=== PATIENT | male | born 1960 | race Caucasian/White ===

== ENCOUNTER 2016-08-09 15:05 | Emergency (ER) | payer SELFPAY ==
[2016-08-09 15:43] VITALS: BP 179/102
--- NOTE | 2016-08-09 16:31 | UC ---
Skin Complaint HPI - HPI Summary HPI Summary: Skin irritation, prickly sensation on bilat lower shins and tops of feet starting 4-5 days ago. Denies burning pain, itching, or rash. No hx of DMII. No bumps or redness. Has been using a lotion from [facility] for several weeks, and it seems to partially help when he puts it on his legs, but the irritation doesn't go away. No fevers or back pain. - History of Current Complaint Chief Complaint: UCSkin Time Seen by Provider: 08/09/16 15:45 Stated Complaint: SKIN IRRITATION Hx Obtained From: Patient Onset/Duration: Gradual Onset, Lasting Days Timing: Constant Onset Severity: Mild Current Severity: Mild Location: Discrete Aggravating: Nothing Alleviating: Other - lotion Associated Signs & Symptoms: Negative: Fever, Chills, Rash - Allergy/Home Medications Allergies/Adverse Reactions: Allergies Allergy/AdvReac Type Severity Reaction Status Date / Time No Known Allergies Allergy Verified 08/09/16 15:43 Home Medications: Home Medications NK [No Home Medications Reported] 08/09/16 [History Confirmed 08/09/16] Review of Systems Constitutional: Negative Skin: Other - discomfort Eyes: Negative ENT: Negative Respiratory: Negative Cardiovascular: Negative Gastrointestinal: Negative Genitourinary: Negative Motor: Negative Neurovascular: Negative Musculoskeletal: Negative Neurological: Negative Psychological: Negative All Other Systems Reviewed And Are Negative: Yes PMH/Surg Hx/FS Hx/Imm Hx Previously Healthy: Yes Endocrine History Of: Denies: Diabetes, Thyroid Disease Cardiovascular History Of: Denies: Cardiac Disorders, Hypertension Respiratory History Of: Denies: COPD, Asthma GI/ History Of: Denies: Ulcer - Surgical History Surgical History: Yes Surgery Procedure, Year, and Place: knee surgery - Family History Known Family History: Positive: Hypertension - Social History Alcohol Use: Rare Substance Use Type: None Smoking Status (MU): Former Smoker Physical Exam Triage Information Reviewed: Yes Appearance: Well-Appearing, No Pain Distress, Well-Nourished Vital Signs: Initial Vital Signs Temp 99.0 F 08/09/16 15:39 Pulse 96 08/09/16 15:39 Resp 18 08/09/16 15:39 BP 179/102 08/09/16 15:39 Pulse Ox 100 08/09/16 15:39 Vital Signs Reviewed: Yes Eye Exam: Normal Eyes: Positive: Conjunctiva Clear ENT Exam: Normal ENT: Positive: Normal ENT inspection, Hearing grossly normal, Pharynx normal, TMs normal Dental: Positive: Gross Decay/Caries @ - diffuse Neck exam: Normal Neck: Positive: Supple, Nontender, No Lymphadenopathy Respiratory Exam: Normal Respiratory: Positive: Chest non-tender, Lungs clear, Normal breath sounds, No respiratory distress, No accessory muscle use Cardiovascular Exam: Normal Cardiovascular: Positive: RRR, No Murmur Musculoskeletal Exam: Normal Neurological Exam: Normal, Other - tips of toes sensitive to light touch Psychological Exam: Normal Skin Exam: Normal Skin: Negative: rashes, breakdown, significant lesion(s) Course/Dx - Diagnoses Provider Diagnoses: dry skin Discharge - Discharge Plan Condition: Stable Disposition: HOME Referrals: Zuleyma Venegas MD [Medical Doctor] - Additional Instructions: As we discussed, I do not see any sign of allergy, bacterial infection, fungal infection, or mite infestation in your skin. In addition, the distribution of your symptoms do not suggest any specific nerve condition. I suggest you use a thick skin cream twice per day. You can use Eucerin, Aquaphor, or petroleum jelly. It is especially important to apply it after bathing. If you do not feel better in a few days, please see your primary care office for a recheck. Images Front/Back of Body, Lg ([place]): 1 - irritated sensation, no physical findings 2 - irritated sensation, no physical findings
== END 2016-08-09 16:35 | disposition home or self-care (01) ==
LOC: UCEAST 15:05
DX: L85.3 Xerosis cutis (principal); Z87.891 Personal history of nicotine dependence
CPT/HCPCS: 99211; G0463

== ENCOUNTER 2016-12-11 18:16 | Emergency (ER) | payer SELFPAY ==
[2016-12-11 20:48] VITALS: BP 176/84
--- NOTE | 2016-12-11 20:48 | UC ---
Skin Complaint HPI - HPI Summary HPI Summary: 56 yo male who c/o redness on right lower leg starting this morning when he woke ; he recently scratched his leg a few days ago moving some brush. no fevers or chills. No nausea, vomiting or loss of appetite. otherwise has been feeling well. Patient is noted to have high blood pressure here - on recheck it was 170/80 - he reports he has "white coat syndrome" and he takes his blood pressure at home everyday and is typically 145/70. He has never been dx with HTN in the past and does not have a PCP. DEnies ever having SOB/chest pain. Denies tobacco abuse, occasional ETOH. - History of Current Complaint Chief Complaint: UCLowerExtremity Time Seen by Provider: 12/11/16 20:43 Stated Complaint: ANKLE REDNESS Hx Obtained From: Patient Onset/Duration: Sudden Onset Skin Exposure Onset/Duration: Hours Ago Onset Severity: Mild Current Severity: Mild Pain Intensity: 1 Pain Scale Used: 0-10 Numeric Location: Discrete - RLE Character: Swelling, Redness Aggravating: Nothing Alleviating: Nothing Associated Signs & Symptoms: Positive: Negative Related History: Trauma - Allergy/Home Medications Allergies/Adverse Reactions: Allergies Allergy/AdvReac Type Severity Reaction Status Date / Time No Known Allergies Allergy Verified 12/11/16 18:48 Home Medications: Home Medications Acetaminophen TAB* [Tylenol TAB*] 500 mg PO QID PRN 12/11/16 [History Confirmed 12/11/16] Review of Systems Constitutional: Negative Skin: Other - right LE redness and swelling Eyes: Negative ENT: Negative Respiratory: Negative Cardiovascular: Negative Gastrointestinal: Negative Genitourinary: Negative Motor: Negative Neurovascular: Negative Musculoskeletal: Negative Neurological: Negative Psychological: Negative All Other Systems Reviewed And Are Negative: Yes PMH/Surg Hx/FS Hx/Imm Hx Previously Healthy: Yes Endocrine History Of: Denies: Diabetes, Thyroid Disease Cardiovascular History Of: Denies: Cardiac Disorders, Hypertension Respiratory History Of: Denies: COPD, Asthma GI/ History Of: Denies: Ulcer - Surgical History Surgical History: Yes Surgery Procedure, Year, and Place: knee surgery - Family History Known Family History: Positive: Hypertension - Social History Alcohol Use: Rare Substance Use Type: None Smoking Status (MU): Former Smoker Have You Smoked in the Last Year: No - Immunization History Hx Tetanus, Diphtheria Vaccination: Yes Vaccination Up to Date: Yes Physical Exam Triage Information Reviewed: Yes Appearance: Well-Appearing, No Pain Distress, Well-Nourished Vital Signs: Initial Vital Signs Temp 99.4 F 12/11/16 18:43 Pulse 107 12/11/16 18:43 Resp 16 12/11/16 18:43 BP 191/103 12/11/16 18:43 Pulse Ox 100 12/11/16 18:43 Vital Signs Reviewed: Yes Eye Exam: Normal ENT: Positive: Normal ENT inspection Neck exam: Normal Neck: Positive: Supple, Nontender, No Lymphadenopathy Respiratory: Positive: Chest non-tender, Lungs clear, Normal breath sounds, No respiratory distress, No accessory muscle use, Respiratory distress Cardiovascular: Positive: RRR, No Murmur, Pulses Normal, Brisk Capillary Refill Abdomen Description: Positive: Nontender, Soft, Distended. Negative: CVA Tenderness (R), CVA Tenderness (L) Bowel Sounds: Positive: Present Musculoskeletal Exam: Normal Musculoskeletal: Positive: Strength Intact, ROM Intact, No Edema Neurological: Positive: Alert Psychological Exam: Normal Skin: Positive: Other - noted mild edema to RLE with erythema and warm to touch Course/Dx - Differential Diagnoses - Skin Complaint Differential Diagnoses: Cellulitis, Contact Dermatitis - Diagnoses Provider Diagnoses: 1. Right lower extremity cellulitis. 2. Hypertension Discharge - Discharge Plan Condition: Stable Disposition: HOME Prescriptions: Cephalexin CAP* [Keflex CAP*] 500 mg PO QID #24 cap Patient Education Materials: Cellulitis (ED), Hypertension (ED) Referrals: [facility] [place] PHYSICIAN REFERRAL [Outside] (Please call for a primary care provider) Additional Instructions: as discussed finished the whole course of antibiotics, you should see improvement in 24-48 hours, if you have worsening signs and symptoms return for evaluation. In regards to your hypertension, you state your normal blood pressure is 145/70 and you take it frequently, you are noted to have a blood pressure 170/80 - this needs close follow up and if you are noted to have continued high blood pressure you need further evaluation. Please call the physician referral number, there is a person who can help set you up with a primary.
[2016-12-11] MEDS ORDERED: Cephalexin CAP* 500 MG PO ONE (21:09)
== END 2016-12-11 21:30 | disposition home or self-care (01) ==
LOC: UCEAST 18:16
DX: L03.115 Cellulitis of right lower limb (principal); I10 Essential (primary) hypertension; Z87.891 Personal history of nicotine dependence
CPT/HCPCS: 99212; A9270-GY; G0463